=== PATIENT | female | born 1960 | race African-American/Black ===

== ENCOUNTER 2017-06-23 13:22 | Emergency (ER) | payer MEDICARE, MEDICAID ==
[~2017-06-23] VITALS: Ht 152.4 cm; Wt 68.0 kg
[2017-06-23 13:24] VITALS: BP_SYST 125
== END 2017-06-23 14:51 | disposition left against medical advice (07) ==
LOC: ER 13:37
DX: R10.9 Unspecified abdominal pain (principal); Z53.21 Procedure and treatment not carried out due to patient leaving prior to being seen by health care provider